=== PATIENT | male | born 1975 | race Hispanic/Latino ===

== ENCOUNTER 2021-08-17 17:09 | Emergency (ER) | payer SELFPAY ==
[2021-08-17 18:21] LABS: #Eosinphils 0.1 thou/uL (0.0-0.7); #Lymphocytes 1.5 thou/uL (1.20-3.40); #Monocytes 0.6 thou/uL (0.11-0.59); #Neutrophils 4.7 thou/uL (1.40-6.50); %Basophils 0.5 % (0.0-1.0); %Eosinophils 1.9 % (0.0-10.0); %Lymphocytes 21.3 % (21.0-51.0); %Monocytes 8.1 % (0.0-10.0); %Neutrophils 68.2 % (42.0-75.0); Hemoglobin 17.7 g/dL (14.0-18.0); Mean Corpuscular HGB CONC 35.1 g/dL (32.0-36.0); Platelet Count 323 thou/uL (130-400); RBC Distribution Width 11.6 % (11.5-14.5); Red Blood Cell (RBC) Count 5.19 mill/uL (4.70-6.10); White Blood Cell (WBC) Count 6.8 thou/uL (4.8-10.8)
[2021-08-17 18:37] LABS: ALT (SGPT) 26 U/L (8-55); AST (SGOT) 30 U/L (5-34); Albumin 4.6 g/dL (3.5-5.0); Alkaline Phosphatase 178 U/L (40-110); Anion Gap 15 mmol/L (10-20); BUN (Urea Nitrogen) 15 mg/dL (8.9-20.6); Bilirubin, Total 0.5 mg/dL (0.2-1.2); Calc. Creatinine Clearance 0 mL/min (70-130); Calcium 9.7 mg/dL (7.8-10.44); Carbon Dioxide 29 mmol/L (22-29); Chloride 94 mmol/L (98-107); Globulin 3.3 g/dL (2.4-3.5); Glucose 365 mg/dL (70-105); Potassium 3.8 mmol/L (3.5-5.1); Protein, Total 7.9 g/dL (6.0-8.3); Sodium 134 mmol/L (136-145)
[2021-08-17] MEDS ORDERED: Furosemide 20 MG/2 ML VIAL ONE (21:05)
[2021-08-17] MEDS ORDERED: Boostrix 0.5 ML (Tdap) VIAL ONE (21:14)
== END 2021-08-17 21:39 | disposition home or self-care (01) ==
LOC: ERS 17:09
DX: R60.0 Localized edema (principal); I10 Essential (primary) hypertension; E11.65 Type 2 diabetes mellitus with hyperglycemia; Z91.14 Patient's other noncompliance with medication regimen
CPT/HCPCS: 36415; 71046; 80053; 83880; 84484; 85025; 90715; 93005; 96374; J1940

== ENCOUNTER 2021-08-20 12:52 | Emergency (ER) | payer SELFPAY ==
[2021-08-20 14:12] LABS: #Basophils 0.1 thou/uL (0.0-0.2); #Eosinphils 0.2 thou/uL (0.0-0.7); #Lymphocytes 1.9 thou/uL (1.20-3.40); #Monocytes 0.6 thou/uL (0.11-0.59); #Neutrophils 5.5 thou/uL (1.40-6.50); %Basophils 0.7 % (0.0-1.0); %Eosinophils 2.7 % (0.0-10.0); %Lymphocytes 22.6 % (21.0-51.0); %Monocytes 7.5 % (0.0-10.0); %Neutrophils 66.5 % (42.0-75.0); Hemoglobin 15.2 g/dL (14.0-18.0); Mean Corpuscular HGB CONC 33.4 g/dL (32.0-36.0); Mean Corpuscular Hemoglobin 32.5 pg (27.0-31.0); Mean Corpuscular Volume 97.3 fL (78.0-98.0); Mean Platelet Volume 6.8 fL (7.4-10.4); Platelet Count 303 thou/uL (130-400); RBC Distribution Width 11.7 % (11.5-14.5); Red Blood Cell (RBC) Count 4.69 mill/uL (4.70-6.10); White Blood Cell (WBC) Count 8.3 thou/uL (4.8-10.8)
[2021-08-20 14:34] LABS: Anion Gap 11 mmol/L (10-20); BUN (Urea Nitrogen) 15 mg/dL (8.9-20.6); Calc. Creatinine Clearance 0 mL/min (70-130); Carbon Dioxide 34 mmol/L (22-29); Chloride 96 mmol/L (98-107); Potassium 3.8 mmol/L (3.5-5.1); Sodium 137 mmol/L (136-145)
[2021-08-20 14:35] LABS: ALT (SGPT) 17 U/L (8-55); AST (SGOT) 12 U/L (5-34); Acetaminophen Less than 6.0 mcg/mL (10.0-30.0); Albumin 3.8 g/dL (3.5-5.0); Alcohol Less than 10 mg/dL (Less than 10); Alkaline Phosphatase 105 U/L (40-110); Bilirubin, Total 0.5 mg/dL (0.2-1.2); Calcium 9.6 mg/dL (7.8-10.44); Globulin 2.6 g/dL (2.4-3.5); Glucose 234 mg/dL (70-105); Protein, Total 6.4 g/dL (6.0-8.3); Salicylate Less than 8.0 mg/dL (15.0-30.0)
[2021-08-20 16:54] LABS: SARS-CoV-2 NAA Rapid Test Not Detected (NotDetected)
[2021-08-20 17:27] LABS: Amphetamine Detected (NotDetected); Barbiturates Screen Not Detected (NotDetected); Benzodiazepine Screen Not Detected (NotDetected); Cocaine Metabolite Screen Not Detected (NotDetected); Methadone Not Detected (NotDetected); Methamphetamine Detected (NotDetected); Opiate Screen Not Detected (NotDetected); Oxycodone Screen Not Detected (NotDetected); Phencyclidine (PCP) Not Detected (NotDetected); THC/Cannabinoid Screen Not Detected (NotDetected); Tricyclic Screen Not Detected (NotDetected)
== END 2021-08-21 11:00 ==
LOC: ERS 12:52
DX: R45.851 Suicidal ideations (principal); F19.10 Other psychoactive substance abuse, uncomplicated; E11.9 Type 2 diabetes mellitus without complications; F17.210 Nicotine dependence, cigarettes, uncomplicated; I10 Essential (primary) hypertension; F32.A Depression, unspecified; F41.9 Anxiety disorder, unspecified; Z20.822 Contact with and (suspected) exposure to COVID-19; Z79.84 Long term (current) use of oral hypoglycemic drugs; Z79.4 Long term (current) use of insulin
CPT/HCPCS: 36415; 36416; 80053; 80306; 80307; 84443; 85025; 85652; 86140; 93005; U0002

== ENCOUNTER 2021-10-17 08:49 | Outpatient (CLI) | payer OTHER | END 2021-10-17 08:50 | disposition home or self-care (01) | LOC: BICRAD 08:49 | PROVIDERS: ATTEND Family Medicine | DX: L08.9 Local infection of the skin and subcutaneous tissue, unspecified (principal) ==

== ENCOUNTER 2022-03-26 03:27 | Emergency (ER) | payer SELFPAY ==
[2022-03-26 04:56] LABS: Actual Bicarbonate (HCO3v) 29 mEq/L (22-28); Analyzer IN Cardio ER; Base Excess 3.1 mEq/L (-2.0 to +3.0); Calcium, Ionized (venous) 1.13 mmol/L (1.16-1.32); Chloride (VBG) 96 mmol/L (98-106); Hemoglobin (Hb) 14.5 g/dL (13.1-17.2); Potassium (VBG) 3.91 mmol/L (3.70-5.30); pH (venous) 7.37 (7.32-7.43)
== END 2022-03-26 05:18 ==
LOC: ERS 03:27
DX: L89.629 Pressure ulcer of left heel, unspecified stage (principal); E11.621 Type 2 diabetes mellitus with foot ulcer; I10 Essential (primary) hypertension; F17.210 Nicotine dependence, cigarettes, uncomplicated; Z79.4 Long term (current) use of insulin
CPT/HCPCS: 36415; 82805; 99283

== ENCOUNTER 2022-05-11 02:46 | Observation (INO) | payer SELFPAY ==
[2022-05-11 03:50] LABS: Actual Bicarbonate (HCO3v) 26 mEq/L (22-28); Analyzer IN Cardio ER; Calcium, Ionized (venous) 1.08 mmol/L (1.16-1.32); Chloride (VBG) 98 mmol/L (98-106); Hemoglobin (Hb) 13.8 g/dL (13.1-17.2); Potassium (VBG) 4.01 mmol/L (3.70-5.30); Sodium 130.9 mmol/L (133-146); pH (venous) 7.42 (7.32-7.43)
[2022-05-11 03:55] LABS: #Basophils 0.1 thou/uL (0.0-0.2); #Eosinphils 0.2 thou/uL (0.0-0.7); #Lymphocytes 2.2 thou/uL (1.20-3.40); #Monocytes 0.6 thou/uL (0.11-0.59); #Neutrophils 3.6 thou/uL (1.40-6.50); %Eosinophils 3.4 % (0.0-10.0); %Lymphocytes 32.3 % (21.0-51.0); %Monocytes 8.8 % (0.0-10.0); %Neutrophils 54.6 % (42.0-75.0); Hemoglobin 12.7 g/dL (14.0-18.0); Mean Corpuscular HGB CONC 35.2 g/dL (32.0-36.0); Mean Corpuscular Hemoglobin 32.6 pg (27.0-31.0); Mean Corpuscular Volume 92.6 fl (78.0-98.0); Mean Platelet Volume 7.1 fL (7.4-10.4); Platelet Count 335 thou/uL (130-400); Red Blood Cell (RBC) Count 3.89 mill/uL (4.70-6.10); White Blood Cell (WBC) Count 6.7 thou/uL (4.8-10.8)
[2022-05-11 04:16] LABS: ALT (SGPT) 9 U/L (8-55); AST (SGOT) 14 U/L (5-34); Acetaminophen Less than 10.0 mcg/mL (10.0-30.0); Albumin 3.5 g/dL (3.5-5.0); Alcohol Less than 10 mg/dL (Less than 10); Alkaline Phosphatase 177 U/L (40-110); Anion Gap 10 mmol/L (10-20); BUN (Urea Nitrogen) 18 mg/dL (8.9-20.6); Bilirubin, Total 0.3 mg/dL (0.2-1.2); Calc. Creatinine Clearance 0 mL/min (70-130); Calcium 8.8 mg/dL (7.8-10.44); Carbon Dioxide 27 mmol/L (22-29); Chloride 98 mmol/L (98-107); Estimated GFR 85; Globulin 2.7 g/dL (2.4-3.5); Glucose 341 mg/dL (70-105); Lipase 40 U/L (8-78); Magnesium 1.8 mg/dL (1.6-2.6); Protein, Total 6.2 g/dL (6.0-8.3); Salicylate Less than 8.0 mg/dL (15.0-30.0); Sodium 131 mmol/L (136-145)
[2022-05-11 04:40] LABS: Bilirubin Negative (Negative); Blood, Urine Negative (Negative); Clarity Clear (Clear); Glucose, Urine (Dipstick) Greater than 1000 mg/dL (Negative); Ketone, Urine Negative (Negative); Leukocyte Negative Leu/uL (Negative); Nitrite Negative (Negative); Protein, Urine (Dipstick) Negative (Neg-Trace); Specific Gravity, Urine 1.034 (1.002-1.036); Urobilinogen Normal mg/dL (Less than 2)
[2022-05-11 04:41] LABS: Amphetamine Detected (NotDetected); Barbiturates Screen Not Detected (NotDetected); Benzodiazepine Screen Not Detected (NotDetected); Cocaine Metabolite Screen Not Detected (NotDetected); Methadone Not Detected (NotDetected); Methamphetamine Detected (NotDetected); Opiate Screen Not Detected (NotDetected); Oxycodone Screen Not Detected (NotDetected); Phencyclidine (PCP) Not Detected (NotDetected); THC/Cannabinoid Screen Detected (NotDetected); Tricyclic Screen Not Detected (NotDetected)
[2022-05-11] MEDS ORDERED: Ondansetron PF 4 MG/2 ML Vial ONE (05:59)
[2022-05-11] MEDS ORDERED: Dextrose 50% Abboject 50 ML SYRINGE SLOW IVP PRN (06:40)
[2022-05-11] MEDS ORDERED: HumaLOG 300 UNITS/3 ML VIAL SC PRN ×2 (06:40)
[2022-05-11] MEDS ORDERED: Dextrose 5% in Water 1,000 ML IV PRN (06:40)
[2022-05-11] MEDS ORDERED: [UNRECOGNIZED DRUG - OTHER] SQ SCH (09:00)
[2022-05-11] MEDS ORDERED: Lorazepam 1 MG TAB PO PRN (09:00)
[2022-05-11] MEDS ORDERED: Lorazepam 2 MG/ML VIAL IM PRN (09:00)
[2022-05-11] MEDS ORDERED: Folic Acid 1 MG TAB PO SCH (09:00)
[2022-05-11] MEDS ORDERED: INSULIN ASPART 100 UNIT/ML SQ SCH (09:00)
[2022-05-11] MEDS ORDERED: Ondansetron ODT 4 MG TAB PO PRN (09:00)
[2022-05-11] MEDS ORDERED: INSULN SQ SCH (09:00)
[2022-05-11] MEDS ORDERED: Multivit, Therapeutic 1 TAB PO SCH (09:00)
[2022-05-11] MEDS ORDERED: Electrolyte Replacement Protocol 1 EACH FS SCH (09:00)
[2022-05-11] MEDS ORDERED: Potassium Chloride 20 MEQ TAB PO SCH (09:30)
[2022-05-11 10:06] LABS: Magnesium 1.8 mg/dL (1.6-2.6)
[2022-05-11] MEDS ORDERED: HumaLOG 300 UNITS/3 ML VIAL SC SCH (15:00)
[2022-05-11 15:22] LABS: Syphilis Antibody Nonreactive (Nonreactive); Syphilis Antibody Index 0.08 S/CO (<1.00 Non-Reactive)
[2022-05-12] MEDS ORDERED: Thiamine HCl 200 MG/2 ML VIAL SLOW IVP SCH (09:00)
[2022-05-12] MEDS ORDERED: Lorazepam 1 MG TAB PO PRN (09:00)
[2022-05-13] MEDS ORDERED: Lorazepam 1 MG TAB PO PRN (09:00)
[2022-05-14] MEDS ORDERED: Thiamine 100 MG TAB PO SCH (09:00)
[2022-05-14] MEDS ORDERED: Lorazepam 0.5 MG TAB PO PRN (09:00)
== END 2022-05-11 10:47 | disposition left against medical advice (07) ==
LOC: ERS 02:46 → ERHOLD 06:26
PROVIDERS: ADMIT Student in an Organized Health Care Education/Training Program; ATTEND Student in an Organized Health Care Education/Training Program
DX: F15.129 Other stimulant abuse with intoxication, unspecified (principal); F12.129 Cannabis abuse with intoxication, unspecified; G92.8 Other toxic encephalopathy; T40.715A Adverse effect of cannabis, initial encounter; E11.9 Type 2 diabetes mellitus without complications; F17.210 Nicotine dependence, cigarettes, uncomplicated; Z53.29 Procedure and treatment not carried out because of patient's decision for other reasons; Z79.4 Long term (current) use of insulin; Z79.84 Long term (current) use of oral hypoglycemic drugs; Z79.899 Other long term (current) drug therapy; Z89.422 Acquired absence of other left toe(s)
CPT/HCPCS: 36415; 36416; 70450; 80053; 80306; 80307; 81003; 82805; 83690; 83735; 85025; 86780; 93005; 96375; G0378; J2405; J3411

== ENCOUNTER 2022-08-31 20:42 | Inpatient (IN) | payer OTHER, SELFPAY ==
[2022-08-31] MEDS ORDERED: Morphine 4 MG/ML VIAL ONE ×2 (20:59→22:03)
[2022-08-31] MEDS ORDERED: Ondansetron PF 4 MG/2 ML Vial ONE (20:59)
[2022-08-31 21:03] LABS: #Eosinphils 0.1 thou/uL (0.0-0.7); #Monocytes 0.8 thou/uL (0.11-0.59); #Neutrophils 8.6 thou/uL (1.40-6.50); %Basophils 0.4 % (0.0-1.0); %Eosinophils 0.7 % (0.0-10.0); %Lymphocytes 9.5 % (21.0-51.0); %Monocytes 7.5 % (0.0-10.0); Hemoglobin 14.5 g/dL (14.0-18.0); Mean Corpuscular HGB CONC 34.3 g/dL (32.0-36.0); Mean Corpuscular Hemoglobin 31.2 pg (27.0-31.0); Mean Corpuscular Volume 90.8 fl (78.0-98.0); Mean Platelet Volume 6.7 fL (7.4-10.4); Platelet Count 422 10x3/uL (130-400); RBC Distribution Width 11.9 % (11.5-14.5); Red Blood Cell (RBC) Count 4.67 mill/uL (4.70-6.10); White Blood Cell (WBC) Count 10.5 10x3/uL (4.8-10.8)
[2022-08-31] MEDS ORDERED: Vancomycin 1 GM/200 ML (FROZEN) BAG ONE (21:08)
[2022-08-31 21:19] LABS: Actual Bicarbonate (HCO3v) 27 mEq/L (22-28); Base Excess 4.7 mEq/L (-2.0 to +3.0); Calcium, Ionized (venous) 1.08 mmol/L (1.16-1.32); Chloride (VBG) 91 mmol/L (98-106); Hemoglobin (Hb) 13.7 g/dL (13.1-17.2); Potassium (VBG) 4.39 mmol/L (3.70-5.30); Sodium 126.5 mmol/L (133-146); pH (venous) 7.53 (7.32-7.43)
[2022-08-31 21:24] LABS: ALT (SGPT) 14 U/L (8-55); AST (SGOT) 13 U/L (5-34); Albumin 3.8 g/dL (3.5-5.0); Alkaline Phosphatase 191 U/L (40-110); Anion Gap 14 mmol/L (10-20); BUN (Urea Nitrogen) 12 mg/dL (8.9-20.6); Bilirubin, Total 0.4 mg/dL (0.2-1.2); Calc. Creatinine Clearance 0 mL/min (70-130); Calcium 9.5 mg/dL (7.8-10.44); Carbon Dioxide 27 mmol/L (22-29); Chloride 91 mmol/L (98-107); Estimated GFR 71; Globulin 3.4 g/dL (2.4-3.5); Potassium 4.1 mmol/L (3.5-5.1); Protein, Total 7.2 g/dL (6.0-8.3); Sodium 128 mmol/L (136-145)
[2022-08-31 21:28] LABS: Glucose 518 mg/dL (70-105)
[2022-08-31] MEDS ORDERED: Ondansetron PF 4 MG/2 ML Vial IVP PRN (22:01)
[2022-08-31] MEDS ORDERED: Insulin Regular 300 UNITS/3 ML VIAL ONE (22:03)
[2022-08-31] MEDS ORDERED: Piperacillin/Tazobactam 3.375 GM VIAL ONE (22:03)
[2022-08-31] MEDS ORDERED: Dextrose 50% Abboject 50 ML SYRINGE SLOW IVP PRN (22:08)
[2022-08-31] MEDS ORDERED: Dextrose 5% in Water 1,000 ML IV PRN (22:08)
[2022-08-31] MEDS ORDERED: Insulin Glargine 30 UNITS/0.3 ML VIAL SC SCH (22:30)
[2022-08-31 22:53] LABS: Hemoglobin A1c 12.3 % (4.0-6.0)
[2022-08-31 23:26] VITALS: BMI 22.6
[2022-09-01] MEDS: Cefepime 2 GM in Sodium Chloride 0.9% 100 ML IVPB SCH ×2 (00:08→12:54)
[2022-09-01] MEDS: Sodium Chloride 0.9% 1,000 ML IV SCH ×4 (00:09→22:05)
[2022-09-01 00:35] LABS: Lactic Acid 0.8 mmol/L (0.5-2.2)
[2022-09-01] MEDS ORDERED: HYDROmorphone 0.5 MG/0.5 ML SYRINGE SLOW IVP SCH (01:00)
[2022-09-01] MEDS ORDERED: Vancomycin HCl 500 MG in Sodium Chloride 0.9% 100 ML IVPB SCH (01:00)
[2022-09-01 05:47] LABS: #Eosinphils 0.2 thou/uL (0.0-0.7); #Lymphocytes 1.4 thou/uL (1.20-3.40); #Neutrophils 8.2 thou/uL (1.40-6.50); %Basophils 0.3 % (0.0-1.0); %Eosinophils 1.7 % (0.0-10.0); %Lymphocytes 12.6 % (21.0-51.0); %Neutrophils 76.3 % (42.0-75.0); Hemoglobin 11.8 g/dL (14.0-18.0); Mean Corpuscular HGB CONC 33.9 g/dL (32.0-36.0); Mean Corpuscular Hemoglobin 31.1 pg (27.0-31.0); Mean Corpuscular Volume 91.8 fl (78.0-98.0); Mean Platelet Volume 6.4 fL (7.4-10.4); Platelet Count 344 10x3/uL (130-400); RBC Distribution Width 11.9 % (11.5-14.5); Red Blood Cell (RBC) Count 3.79 mill/uL (4.70-6.10); White Blood Cell (WBC) Count 10.7 10x3/uL (4.8-10.8)
[2022-09-01 06:06] LABS: Anion Gap 12 mmol/L (10-20); BUN (Urea Nitrogen) 10 mg/dL (8.9-20.6); Calc. Creatinine Clearance 152 mL/min (70-130); Calcium 8.5 mg/dL (7.8-10.44); Carbon Dioxide 23 mmol/L (22-29); Chloride 100 mmol/L (98-107); Estimated GFR 118; Glucose 208 mg/dL (70-105); Potassium 3.7 mmol/L (3.5-5.1); Sodium 131 mmol/L (136-145)
[2022-09-01] MEDS: Insulin Regular 300 UNITS/3 ML VIAL SC PRN ×4 (06:25→21:58)
[2022-09-01] MEDS ORDERED: Magnevist 469MG/ML 20 ML VIAL ONE (09:03)
[2022-09-01] MEDS: Famotidine 20 MG TAB PO SCH ×2 (09:38→21:55)
[2022-09-01] MEDS: VANCOMYCIN 1.25 GM/250 ML BAG 1.25 GM in Premix Bag 1 BAG IVPB SCH ×2 (09:39→21:50)
[2022-09-01] MEDS: metroNIDAZOLE 500 MG TAB PO SCH ×2 (16:24→21:56)
[2022-09-01] MEDS: HYDROcodone/Acetaminophen 5/325 mg Tablet PO PRN ×2 (16:57→21:54)
[2022-09-01] MEDS ORDERED: Insulin Glargine 30 UNITS/0.3 ML VIAL SC SCH (21:00)
[2022-09-02] MEDS: Cefepime 2 GM in Sodium Chloride 0.9% 100 ML IVPB SCH ×3 (00:24→23:46)
[2022-09-02] MEDS: Insulin Regular 300 UNITS/3 ML VIAL SC PRN ×4 (06:26→20:12)
[2022-09-02] MEDS: Sodium Chloride 0.9% 1,000 ML IV SCH (06:29)
[2022-09-02 08:38] LABS: Vancomycin, Trough 5.8 ug/mL
[2022-09-02] MEDS: HYDROcodone/Acetaminophen 5/325 mg Tablet PO PRN ×3 (11:04→21:13)
[2022-09-02] MEDS: Famotidine 20 MG TAB PO SCH ×2 (11:40→20:10)
[2022-09-02] MEDS: VANCOMYCIN 1.25 GM/250 ML BAG 1.25 GM in Premix Bag 1 BAG IVPB SCH ×3 (11:40→18:44)
[2022-09-02] MEDS: metroNIDAZOLE 500 MG TAB PO SCH ×3 (11:40→20:09)
[2022-09-02] MEDS: Insulin Glargine 30 UNITS/0.3 ML VIAL SC SCH (20:11)
[2022-09-03] MEDS: VANCOMYCIN 1.25 GM/250 ML BAG 1.25 GM in Premix Bag 1 BAG IVPB SCH ×2 (02:26→14:58)
[2022-09-03 05:25] LABS: #Eosinphils 0.3 thou/uL (0.0-0.7); #Lymphocytes 1.9 thou/uL (1.20-3.40); #Monocytes 0.6 thou/uL (0.11-0.59); #Neutrophils 4.1 thou/uL (1.40-6.50); %Basophils 0.4 % (0.0-1.0); %Eosinophils 4.3 % (0.0-10.0); %Lymphocytes 26.7 % (21.0-51.0); %Monocytes 9.2 % (0.0-10.0); %Neutrophils 59.4 % (42.0-75.0); Hemoglobin 12.4 g/dL (14.0-18.0); Mean Corpuscular HGB CONC 33.5 g/dL (32.0-36.0); Mean Corpuscular Volume 92.5 fl (78.0-98.0); Mean Platelet Volume 6.3 fL (7.4-10.4); Platelet Count 428 10x3/uL (130-400); RBC Distribution Width 11.4 % (11.5-14.5); Red Blood Cell (RBC) Count 4.01 mill/uL (4.70-6.10); White Blood Cell (WBC) Count 6.9 10x3/uL (4.8-10.8)
[2022-09-03 05:48] LABS: Anion Gap 11 mmol/L (10-20); BUN (Urea Nitrogen) 11 mg/dL (8.9-20.6); Calc. Creatinine Clearance 123 mL/min (70-130); Calcium 8.7 mg/dL (7.8-10.44); Carbon Dioxide 28 mmol/L (22-29); Chloride 97 mmol/L (98-107); Estimated GFR 111; Glucose 362 mg/dL (70-105); Potassium 3.9 mmol/L (3.5-5.1); Sodium 132 mmol/L (136-145)
[2022-09-03] MEDS: Insulin Regular 300 UNITS/3 ML VIAL SC PRN ×3 (06:26→21:57)
[2022-09-03] MEDS: HYDROcodone/Acetaminophen 5/325 mg Tablet PO PRN ×2 (06:33→14:41)
[2022-09-03] MEDS: Insulin Glargine 30 UNITS/0.3 ML VIAL SC SCH ×2 (08:27→21:56)
[2022-09-03] MEDS: metroNIDAZOLE 500 MG TAB PO SCH ×3 (08:27→21:58)
[2022-09-03] MEDS: Famotidine 20 MG TAB PO SCH ×2 (08:27→21:57)
[2022-09-03 09:22] LABS: Vancomycin, Trough 10.9 ug/mL
[2022-09-03] MEDS: Vancomycin 1.5 GRAM/300 ML BAG 1.5 GM in Premix Bag 1 BAG IVPB SCH ×2 (10:38→18:13)
[2022-09-03] MEDS: Cefepime 2 GM in Sodium Chloride 0.9% 100 ML IVPB SCH (12:52)
[2022-09-04] MEDS: Cefepime 2 GM in Sodium Chloride 0.9% 100 ML IVPB SCH ×2 (00:08→13:45)
[2022-09-04] MEDS: Vancomycin 1.5 GRAM/300 ML BAG 1.5 GM in Premix Bag 1 BAG IVPB SCH ×2 (02:15→13:45)
[2022-09-04 05:52] LABS: #Eosinphils 0.3 thou/uL (0.0-0.7); #Lymphocytes 1.8 thou/uL (1.20-3.40); #Monocytes 0.6 thou/uL (0.11-0.59); #Neutrophils 4.6 thou/uL (1.40-6.50); %Basophils 0.5 % (0.0-1.0); %Eosinophils 4.3 % (0.0-10.0); %Lymphocytes 24.4 % (21.0-51.0); %Monocytes 8.2 % (0.0-10.0); %Neutrophils 62.7 % (42.0-75.0); Hemoglobin 13.1 g/dL (14.0-18.0); Mean Corpuscular HGB CONC 33.4 g/dL (32.0-36.0); Mean Corpuscular Hemoglobin 30.6 pg (27.0-31.0); Mean Corpuscular Volume 91.6 fl (78.0-98.0); Mean Platelet Volume 6.3 fL (7.4-10.4); Platelet Count 484 10x3/uL (130-400); RBC Distribution Width 11.5 % (11.5-14.5); Red Blood Cell (RBC) Count 4.27 mill/uL (4.70-6.10); White Blood Cell (WBC) Count 7.3 10x3/uL (4.8-10.8)
[2022-09-04] MEDS: Insulin Regular 300 UNITS/3 ML VIAL SC PRN ×3 (06:16→17:03)
[2022-09-04 06:17] LABS: Anion Gap 12 mmol/L (10-20); BUN (Urea Nitrogen) 10 mg/dL (8.9-20.6); Calc. Creatinine Clearance 130 mL/min (70-130); Calcium 8.9 mg/dL (7.8-10.44); Carbon Dioxide 28 mmol/L (22-29); Chloride 96 mmol/L (98-107); Estimated GFR 112; Glucose 267 mg/dL (70-105); Potassium 4.3 mmol/L (3.5-5.1); Sodium 132 mmol/L (136-145)
[2022-09-04] MEDS: metFORMIN 500 MG TAB PO SCH ×2 (08:25→16:05)
[2022-09-04] MEDS: Insulin Glargine 30 UNITS/0.3 ML VIAL SC SCH ×2 (08:26→23:00)
[2022-09-04] MEDS: Famotidine 20 MG TAB PO SCH ×2 (08:26→20:02)
[2022-09-04] MEDS: metroNIDAZOLE 500 MG TAB PO SCH ×3 (08:26→20:02)
[2022-09-04] MEDS: HYDROcodone/Acetaminophen 5/325 mg Tablet PO PRN ×2 (12:07→16:05)
[2022-09-04] MEDS: VANCOMYCIN 1.75 GM/500 ML BAG 1.75 GM in Premix Bag 1 BAG IVPB SCH ×2 (12:26→19:56)
[2022-09-05] MEDS: VANCOMYCIN 1.75 GM/500 ML BAG 1.75 GM in Premix Bag 1 BAG IVPB SCH ×3 (04:41→21:24)
[2022-09-05] MEDS: Insulin Regular 300 UNITS/3 ML VIAL SC PRN ×4 (05:47→21:23)
[2022-09-05 05:55] LABS: #Eosinphils 0.3 thou/uL (0.0-0.7); #Lymphocytes 2.1 thou/uL (1.20-3.40); #Monocytes 0.5 thou/uL (0.11-0.59); #Neutrophils 4.1 thou/uL (1.40-6.50); %Basophils 0.5 % (0.0-1.0); %Eosinophils 4.3 % (0.0-10.0); %Lymphocytes 29.9 % (21.0-51.0); %Monocytes 7.5 % (0.0-10.0); %Neutrophils 57.9 % (42.0-75.0); Hemoglobin 14.2 g/dL (14.0-18.0); Mean Corpuscular HGB CONC 33.6 g/dL (32.0-36.0); Mean Corpuscular Hemoglobin 30.9 pg (27.0-31.0); Mean Corpuscular Volume 91.9 fl (78.0-98.0); Mean Platelet Volume 6.2 fL (7.4-10.4); Platelet Count 513 10x3/uL (130-400); RBC Distribution Width 11.7 % (11.5-14.5); White Blood Cell (WBC) Count 7.1 10x3/uL (4.8-10.8)
[2022-09-05 06:15] LABS: Anion Gap 13 mmol/L (10-20); BUN (Urea Nitrogen) 14 mg/dL (8.9-20.6); Calc. Creatinine Clearance 145 mL/min (70-130); Calcium 8.9 mg/dL (7.8-10.44); Carbon Dioxide 26 mmol/L (22-29); Chloride 98 mmol/L (98-107); Estimated GFR 116; Glucose 270 mg/dL (70-105); Potassium 4.3 mmol/L (3.5-5.1); Sodium 133 mmol/L (136-145)
[2022-09-05] MEDS: metroNIDAZOLE 500 MG TAB PO SCH ×2 (09:00→14:44)
[2022-09-05] MEDS: metFORMIN 500 MG TAB PO SCH ×2 (09:00→16:31)
[2022-09-05] MEDS: Famotidine 20 MG TAB PO SCH ×2 (09:00→21:24)
[2022-09-05] MEDS: Insulin Glargine 30 UNITS/0.3 ML VIAL SC SCH ×2 (09:00→21:23)
[2022-09-05 11:35] LABS: Vancomycin, Trough 20.3 ug/mL
[2022-09-05] MEDS: HYDROcodone/Acetaminophen 5/325 mg Tablet PO PRN (13:40)
[2022-09-05] MEDS ORDERED: HYDROcodone/Acetaminophen 5/325 mg Tablet PO PRN (15:23)
[2022-09-06 01:09] VITALS: BP 144/82; TEMP 97.5
[2022-09-06] MEDS: VANCOMYCIN 1.75 GM/500 ML BAG 1.75 GM in Premix Bag 1 BAG IVPB SCH ×2 (03:36→05:37)
== END 2022-09-06 05:32 | disposition short-term general hospital (02) | DRG 871 ==
LOC: ERS 20:42 → OBSVTOIN 21:59 → MSONC 21:59
PROVIDERS: ADMIT Hospitalist; ATTEND Internal Medicine
DX: A41.9 Sepsis, unspecified organism (principal); L89.153 Pressure ulcer of sacral region, stage 3; E87.1 Hypo-osmolality and hyponatremia; M86.172 Other acute osteomyelitis, left ankle and foot; E11.69 Type 2 diabetes mellitus with other specified complication; Z20.822 Contact with and (suspected) exposure to COVID-19; E11.65 Type 2 diabetes mellitus with hyperglycemia; I10 Essential (primary) hypertension; E11.621 Type 2 diabetes mellitus with foot ulcer; L97.529 Non-pressure chronic ulcer of other part of left foot with unspecified severity; Z79.4 Long term (current) use of insulin; Z79.899 Other long term (current) drug therapy; F41.9 Anxiety disorder, unspecified; F32.A Depression, unspecified; F15.10 Other stimulant abuse, uncomplicated; F17.210 Nicotine dependence, cigarettes, uncomplicated; E11.42 Type 2 diabetes mellitus with diabetic polyneuropathy; Z89.431 Acquired absence of right foot; Z59.00 Homelessness unspecified
CPT/HCPCS: 36415; 36416; 80048; 80053; 80202; 82010; 82805; 83036; 83605; 85025; 85652; 86140; 87040; 87070; 87077; 87186; 87205; 93005; 96365; 96366; 96375; 96376; 97139; A9579; J0692; J1170; J1650; J1815; J2270; J2405; J2543; J3370; J3370-JW; J3490; J7050; U0003; U0005

== ENCOUNTER 2023-03-08 12:41 | Emergency (ER) | payer OTHER ==
[2023-03-08 13:18] LABS: #Basophils 0.1 thou/uL (0.0-0.2); #Eosinphils 0.2 thou/uL (0.0-0.7); #Monocytes 0.8 thou/uL (0.11-0.59); #Neutrophils 5.1 thou/uL (1.40-6.50); %Basophils 0.6 % (0.0-1.0); %Eosinophils 2.7 % (0.0-10.0); %Lymphocytes 23.4 % (21.0-51.0); %Monocytes 9.9 % (0.0-10.0); %Neutrophils 63.2 % (42.0-75.0); Hematocrit 39.2 % (42.0-52.0); Mean Corpuscular HGB CONC 35.7 g/dL (32.0-36.0); Mean Corpuscular Hemoglobin 31.5 pg (27.0-31.0); Mean Corpuscular Volume 88.1 fl (78.0-98.0); Mean Platelet Volume 8.9 fL (7.4-10.4); Platelet Count 363 10x3/uL (130-400); RBC Distribution Width 11.8 % (11.5-14.5); Red Blood Cell (RBC) Count 4.45 mill/uL (4.70-6.10); White Blood Cell (WBC) Count 8.2 10x3/uL (4.8-10.8)
[2023-03-08 13:27] LABS: Actual Bicarbonate (HCO3v) 24.3 mEq/L (22-28); Base Excess -0.3 mEq/L (-2.0 to +3.0); Calcium, Ionized (venous) 1.12 mmol/L (1.16-1.32); Chloride (VBG) 99 mmol/L (98-106); Hematocrit-VBG 44 % (42.0-52.0); Hemoglobin (Hb) 14.9 g/dL (13.1-17.2); Potassium (VBG) 3.87 mmol/L (3.70-5.30); pH (venous) 7.402 (7.32-7.43)
[2023-03-08 13:39] LABS: Phosphorus 3.1 mg/dL (2.3-4.7)
[2023-03-08 13:47] LABS: ALT (SGPT) 14 U/L (8-55); AST (SGOT) 13 U/L (5-34); Albumin 4.1 g/dL (3.5-5.0); Alkaline Phosphatase 214 U/L (40-110); Anion Gap 14 mmol/L (10-20); BUN (Urea Nitrogen) 12 mg/dL (8.9-20.6); Bilirubin, Total 0.4 mg/dL (0.2-1.2); Calc. Creatinine Clearance 0 mL/min (70-130); Calcium 9.4 mg/dL (7.8-10.44); Carbon Dioxide 26 mmol/L (22-29); Chloride 100 mmol/L (98-107); Estimated GFR 63; Globulin 2.7 g/dL (2.4-3.5); Protein, Total 6.8 g/dL (6.0-8.3); Sodium 136 mmol/L (136-145)
[2023-03-08 13:54] LABS: Glucose 438 mg/dL (70-105)
[2023-03-08] MEDS ORDERED: cefTRIAXone (ROCEPHIN) 2 GM VIAL ONE (14:07)
== END 2023-03-08 15:49 ==
LOC: ERS 12:41
DX: E11.65 Type 2 diabetes mellitus with hyperglycemia (principal); E11.621 Type 2 diabetes mellitus with foot ulcer; L97.519 Non-pressure chronic ulcer of other part of right foot with unspecified severity; L97.529 Non-pressure chronic ulcer of other part of left foot with unspecified severity; I10 Essential (primary) hypertension; F17.210 Nicotine dependence, cigarettes, uncomplicated
CPT/HCPCS: 36415; 80053; 82010; 82805; 83735; 84100; 85025; 87040; 96361; 96365; J0696

== ENCOUNTER 2023-03-18 05:15 | Emergency (ER) | payer OTHER, MEDICAID ==
[2023-03-18] MEDS ORDERED: Vancomycin 1.5 GRAM/300 ML BAG 1.5 GM in Premix Bag 1 BAG IVPB SCH (05:45)
[2023-03-18] MEDS ORDERED: Morphine 4 MG/ML VIAL ONE (05:50)
[2023-03-18] MEDS ORDERED: Cefepime 2 GM VIAL ONE (05:50)
[2023-03-18 06:34] LABS: CK (CPK) 102 U/L (30-200); Phosphorus 3.3 mg/dL (2.3-4.7)
[2023-03-18 06:35] LABS: ALT (SGPT) 16 U/L (8-55); AST (SGOT) 13 U/L (5-34); Albumin 4.2 g/dL (3.5-5.0); Alkaline Phosphatase 233 U/L (40-110); Anion Gap 14 mmol/L (10-20); BUN (Urea Nitrogen) 17 mg/dL (8.9-20.6); Bilirubin, Total 0.5 mg/dL (0.2-1.2); Calc. Creatinine Clearance 0 mL/min (70-130); Calcium 9.3 mg/dL (7.8-10.44); Carbon Dioxide 29 mmol/L (22-29); Chloride 97 mmol/L (98-107); Estimated GFR 82; Globulin 2.8 g/dL (2.4-3.5); Magnesium 1.8 mg/dL (1.6-2.6); Potassium 4.2 mmol/L (3.5-5.1); Sodium 136 mmol/L (136-145)
[2023-03-18 06:40] LABS: Glucose 409 mg/dL (70-105); Troponin I Less than 0.010 ng/mL (< 0.028)
[2023-03-18 06:45] LABS: #Basophils 0.1 thou/uL (0.0-0.2); #Eosinphils 0.1 thou/uL (0.0-0.7); #Monocytes 0.9 thou/uL (0.11-0.59); #Neutrophils 7.5 thou/uL (1.40-6.50); %Basophils 0.5 % (0.0-1.0); %Eosinophils 1.3 % (0.0-10.0); %Lymphocytes 20.9 % (21.0-51.0); %Monocytes 8.6 % (0.0-10.0); %Neutrophils 68.3 % (42.0-75.0); Hematocrit 43.9 % (42.0-52.0); Hemoglobin 15.5 g/dL (14.0-18.0); Mean Corpuscular HGB CONC 35.3 g/dL (32.0-36.0); Mean Corpuscular Hemoglobin 31.7 pg (27.0-31.0); Mean Corpuscular Volume 89.8 fl (78.0-98.0); Mean Platelet Volume 9.3 fL (7.4-10.4); Platelet Count 377 10x3/uL (130-400); RBC Distribution Width 12.2 % (11.5-14.5); Red Blood Cell (RBC) Count 4.89 mill/uL (4.70-6.10)
[2023-03-18 06:46] LABS: Actual Bicarbonate (HCO3v) 28.2 mEq/L (22-28); Base Excess 0.3 mEq/L (-2.0 to +3.0); Calcium, Ionized (venous) 1.14 mmol/L (1.16-1.32); Chloride (VBG) 95 mmol/L (98-106); Hematocrit-VBG 49 % (42.0-52.0); Hemoglobin (Hb) 16.6 g/dL (13.1-17.2); Potassium (VBG) 3.87 mmol/L (3.70-5.30); Sodium 134.8 mmol/L (133-146); pH (venous) 7.303 (7.32-7.43)
== END 2023-03-18 07:25 | disposition left against medical advice (07) ==
LOC: ERS 05:15
DX: A41.9 Sepsis, unspecified organism (principal); M86.9 Osteomyelitis, unspecified; F15.10 Other stimulant abuse, uncomplicated; E11.9 Type 2 diabetes mellitus without complications; I10 Essential (primary) hypertension; F17.210 Nicotine dependence, cigarettes, uncomplicated; Z79.4 Long term (current) use of insulin; Z79.84 Long term (current) use of oral hypoglycemic drugs
CPT/HCPCS: 36415; 80053; 82010; 82550; 82805; 83605; 83735; 84100; 84484; 85025; 86140; 87040; 96365; 96375; J0692; J2270; J3370

== ENCOUNTER 2023-04-02 13:22 | Inpatient (IN) | payer MEDICAID, OTHER ==
[2023-04-02 14:30] LABS: #Eosinphils 0.3 thou/uL (0.0-0.7); #Monocytes 0.6 thou/uL (0.11-0.59); #Neutrophils 3.6 thou/uL (1.40-6.50); %Basophils 0.6 % (0.0-1.0); %Eosinophils 4.2 % (0.0-10.0); %Lymphocytes 30.2 % (21.0-51.0); %Monocytes 8.8 % (0.0-10.0); %Neutrophils 55.9 % (42.0-75.0); Hematocrit 39.8 % (42.0-52.0); Hemoglobin 14.1 g/dL (14.0-18.0); Mean Corpuscular HGB CONC 35.4 g/dL (32.0-36.0); Mean Corpuscular Hemoglobin 31.5 pg (27.0-31.0); Mean Corpuscular Volume 88.8 fl (78.0-98.0); Mean Platelet Volume 9.3 fL (7.4-10.4); Platelet Count 358 10x3/uL (130-400); RBC Distribution Width 12.2 % (11.5-14.5); Red Blood Cell (RBC) Count 4.48 mill/uL (4.70-6.10); White Blood Cell (WBC) Count 6.5 10x3/uL (4.8-10.8)
[2023-04-02] MEDS ORDERED: Cefepime 2 GM VIAL ONE (14:46)
[2023-04-02] MEDS ORDERED: Ondansetron PF 4 MG/2 ML Vial ONE (14:46)
[2023-04-02] MEDS ORDERED: Morphine 4 MG/ML VIAL ONE ×2 (14:46→17:16)
[2023-04-02 14:51] LABS: ALT (SGPT) 17 U/L (8-55); AST (SGOT) 13 U/L (5-34); Albumin 4.1 g/dL (3.5-5.0); Alkaline Phosphatase 239 U/L (40-110); Anion Gap 14 mmol/L (10-20); BUN (Urea Nitrogen) 20 mg/dL (8.9-20.6); Bilirubin, Total 0.2 mg/dL (0.2-1.2); Calc. Creatinine Clearance 0 mL/min (70-130); Calcium 9.5 mg/dL (7.8-10.44); Carbon Dioxide 23 mmol/L (22-29); Chloride 100 mmol/L (98-107); Estimated GFR 75; Globulin 3.1 g/dL (2.4-3.5); Potassium 3.8 mmol/L (3.5-5.1); Protein, Total 7.2 g/dL (6.0-8.3); Sodium 133 mmol/L (136-145)
[2023-04-02 14:56] LABS: Glucose 434 mg/dL (70-105)
[2023-04-02] MEDS ORDERED: Vancomycin 1.5 GRAM/300 ML BAG 1.5 GM in Premix Bag 1 BAG IVPB SCH (15:00)
[2023-04-02] MEDS ORDERED: Glucagon 1 MG/ML KIT IM PRN (17:19)
[2023-04-02] MEDS ORDERED: Dextrose 50% Abboject 50 ML SYRINGE SLOW IVP PRN (17:19)
[2023-04-02] MEDS ORDERED: Ondansetron ODT 4 MG TAB PO PRN (17:19)
[2023-04-02] MEDS ORDERED: Dextrose 5% in Water 1,000 ML IV PRN (17:19)
[2023-04-02] MEDS ORDERED: Ondansetron PF 4 MG/2 ML Vial IVP PRN (17:19)
[2023-04-02 17:44] LABS: Hemoglobin A1c 10.7 % (4.0-6.0)
[2023-04-02] MEDS ORDERED: Sodium Chloride 0.9% 1,000 ML IV SCH ×2 (18:00→21:00)
[2023-04-02] MEDS ORDERED: HumaLOG 300 UNITS/3 ML VIAL SC SCH (19:00)
[2023-04-02] MEDS ORDERED: Morphine ER 15 MG TAB PO SCH (19:00)
[2023-04-02 19:39] VITALS: BMI 20.9
[2023-04-02] MEDS: Morphine 2 MG/ML VIAL SLOW IVP PRN (20:09)
[2023-04-02] MEDS: HYDROcodone/Acetaminophen 5/325 mg Tablet PO PRN (20:10)
[2023-04-02] MEDS ORDERED: Naloxone HCl 0.4 mg/ml Vial IV PRN (20:32)
[2023-04-02] MEDS ORDERED: Acetaminophen 500 MG TAB PO PRN (20:32)
[2023-04-02] MEDS ORDERED: traMADol HCl 50 MG TAB PO PRN (20:32)
[2023-04-02] MEDS: Famotidine 20 MG TAB PO SCH (20:37)
[2023-04-02] MEDS ORDERED: Bisacodyl 5 MG TAB PO PRN (20:39)
[2023-04-02] MEDS: Heparin 5,000 UNITS/ML VIAL SC SCH (21:00)
[2023-04-02] MEDS ORDERED: Vancomycin 1 GM in Premix Bag 1 BAG IVPB SCH (21:00)
[2023-04-02] MEDS ORDERED: fentaNYL 50 mcg/mL 1 mL Vial SLOW IVP PRN (21:27)
[2023-04-02] MEDS: Morphine ER 15 MG TAB PO SCH (22:17)
[2023-04-03] MEDS: Morphine 2 MG/ML VIAL SLOW IVP PRN ×2 (02:52→12:10)
[2023-04-03] MEDS: HYDROcodone/Acetaminophen 5/325 mg Tablet PO PRN (02:53)
[2023-04-03] MEDS: Vancomycin 1 GM in Premix Bag 1 BAG IVPB SCH ×2 (02:53→15:15)
[2023-04-03] MEDS: Cefepime 2 GM in Sodium Chloride 0.9% 100 ML IVPB SCH ×2 (04:03→14:41)
[2023-04-03] MEDS: HumaLOG 300 UNITS/3 ML VIAL SC PRN ×3 (05:16→21:40)
[2023-04-03 05:39] LABS: #Eosinphils 0.2 thou/uL (0.0-0.7); #Monocytes 0.5 thou/uL (0.11-0.59); #Neutrophils 2.7 thou/uL (1.40-6.50); %Basophils 0.5 % (0.0-1.0); Hematocrit 37.1 % (42.0-52.0); Hemoglobin 13.1 g/dL (14.0-18.0); Mean Corpuscular HGB CONC 35.3 g/dL (32.0-36.0); Mean Corpuscular Hemoglobin 31.9 pg (27.0-31.0); Mean Corpuscular Volume 90.3 fl (78.0-98.0); Mean Platelet Volume 9.3 fL (7.4-10.4); Platelet Count 296 10x3/uL (130-400); RBC Distribution Width 12.3 % (11.5-14.5); Red Blood Cell (RBC) Count 4.11 mill/uL (4.70-6.10); White Blood Cell (WBC) Count 5.7 10x3/uL (4.8-10.8)
[2023-04-03 07:02] LABS: Chloride 105 mmol/L (98-107); Sodium 132 mmol/L (136-145)
[2023-04-03 07:03] LABS: Calcium 8.4 mg/dL (7.8-10.44); Glucose 306 mg/dL (70-105)
[2023-04-03 07:05] LABS: Anion Gap 10 mmol/L (10-20); Carbon Dioxide 21 mmol/L (22-29)
[2023-04-03 07:07] LABS: Calc. Creatinine Clearance 118 mL/min (70-130); Estimated GFR 111
[2023-04-03 07:08] LABS: BUN (Urea Nitrogen) 16 mg/dL (8.9-20.6)
[2023-04-03 07:57] LABS: Amphetamine Detected (NotDetected); Barbiturates Screen Not Detected (NotDetected); Benzodiazepine Screen Not Detected (NotDetected); Cocaine Metabolite Screen Not Detected (NotDetected); Methadone Not Detected (NotDetected); Methamphetamine Detected (NotDetected); Opiate Screen Detected (NotDetected); Oxycodone Screen Not Detected (NotDetected); Phencyclidine (PCP) Not Detected (NotDetected); THC/Cannabinoid Screen Not Detected (NotDetected); Tricyclic Screen Not Detected (NotDetected)
[2023-04-03] MEDS: Famotidine 20 MG TAB PO SCH ×3 (08:55→22:25)
[2023-04-03] MEDS: Morphine ER 15 MG TAB PO SCH ×2 (08:56→22:12)
[2023-04-03] MEDS: Thiamine 100 MG TAB PO SCH (08:56)
[2023-04-03] MEDS: Polyethylene Glycol 3350 17 GM Packet PO SCH (08:57)
[2023-04-03] MEDS: Heparin 5,000 UNITS/ML VIAL SC SCH ×2 (08:57→21:41)
[2023-04-03] MEDS: Insulin Glargine 30 UNITS/0.3 ML VIAL SC SCH (21:39)
[2023-04-04 02:50] LABS: Vancomycin, Trough 5.8 ug/mL
[2023-04-04] MEDS: Cefepime 2 GM in Sodium Chloride 0.9% 100 ML IVPB SCH ×2 (03:01→15:44)
[2023-04-04] MEDS: VANCOMYCIN 1.25 GM/250 ML BAG 1.25 GM in Premix Bag 1 BAG IVPB SCH ×3 (03:51→19:53)
[2023-04-04] MEDS: Vancomycin 1 GM in Premix Bag 1 BAG IVPB SCH (04:31)
[2023-04-04] MEDS: HumaLOG 300 UNITS/3 ML VIAL SC PRN ×3 (06:17→18:01)
[2023-04-04] MEDS ORDERED: Insulin Glargine 30 UNITS/0.3 ML VIAL SC SCH (09:00)
[2023-04-04] MEDS: Thiamine 100 MG TAB PO SCH (09:15)
[2023-04-04] MEDS: Morphine ER 15 MG TAB PO SCH ×2 (09:16→19:52)
[2023-04-04] MEDS: Famotidine 20 MG TAB PO SCH ×2 (09:16→19:52)
[2023-04-04] MEDS: Polyethylene Glycol 3350 17 GM Packet PO SCH (09:17)
[2023-04-04] MEDS: Heparin 5,000 UNITS/ML VIAL SC SCH ×2 (09:19→19:53)
[2023-04-04] MEDS: Insulin Glargine 30 UNITS/0.3 ML VIAL SC SCH (19:53)
[2023-04-05 03:07] LABS: Vancomycin, Trough 12.7 ug/mL
[2023-04-05] MEDS: Cefepime 2 GM in Sodium Chloride 0.9% 100 ML IVPB SCH ×2 (03:36→14:56)
[2023-04-05] MEDS: VANCOMYCIN 1.25 GM/250 ML BAG 1.25 GM in Premix Bag 1 BAG IVPB SCH ×3 (05:13→20:48)
[2023-04-05] MEDS: HumaLOG 300 UNITS/3 ML VIAL SC PRN ×2 (05:57→12:31)
[2023-04-05] MEDS: Heparin 5,000 UNITS/ML VIAL SC SCH (08:24)
[2023-04-05] MEDS: Morphine ER 15 MG TAB PO SCH ×2 (08:25→20:49)
[2023-04-05] MEDS: Famotidine 20 MG TAB PO SCH ×2 (08:25→20:49)
[2023-04-05] MEDS: Polyethylene Glycol 3350 17 GM Packet PO SCH (08:27)
[2023-04-05] MEDS: Thiamine 100 MG TAB PO SCH (08:28)
[2023-04-05 08:57] LABS: Anion Gap 12 mmol/L (10-20); BUN (Urea Nitrogen) 15 mg/dL (8.9-20.6); Calc. Creatinine Clearance 130 mL/min (70-130); Calcium 8.8 mg/dL (7.8-10.44); Carbon Dioxide 27 mmol/L (22-29); Chloride 103 mmol/L (98-107); Estimated GFR 114; Glucose 122 mg/dL (70-105); Sodium 138 mmol/L (136-145)
[2023-04-05] MEDS ORDERED: Insulin Glargine 30 UNITS/0.3 ML VIAL SC SCH (09:00)
[2023-04-05] MEDS: Insulin Glargine 30 UNITS/0.3 ML VIAL SC SCH (20:48)
[2023-04-06] MEDS: Cefepime 2 GM in Sodium Chloride 0.9% 100 ML IVPB SCH ×2 (02:58→14:51)
[2023-04-06 05:03] LABS: Vancomycin, Trough 13.7 ug/mL
[2023-04-06] MEDS: VANCOMYCIN 1.25 GM/250 ML BAG 1.25 GM in Premix Bag 1 BAG IVPB SCH (05:14)
[2023-04-06] MEDS: Vancomycin 1.5 GRAM/300 ML BAG 1.5 GM in Premix Bag 1 BAG IVPB SCH ×3 (05:29→22:03)
[2023-04-06] MEDS: HumaLOG 300 UNITS/3 ML VIAL SC PRN ×4 (05:35→22:04)
[2023-04-06] MEDS: Insulin Glargine 30 UNITS/0.3 ML VIAL SC SCH ×2 (08:43→19:54)
[2023-04-06] MEDS: Morphine ER 15 MG TAB PO SCH ×2 (08:44→19:54)
[2023-04-06] MEDS: Famotidine 20 MG TAB PO SCH ×2 (08:44→19:53)
[2023-04-06] MEDS: Thiamine 100 MG TAB PO SCH (08:44)
[2023-04-06] MEDS: Polyethylene Glycol 3350 17 GM Packet PO SCH (08:44)
[2023-04-06] MEDS: HYDROcodone/Acetaminophen 5/325 mg Tablet PO PRN (15:27)
[2023-04-06] MEDS: Morphine 2 MG/ML VIAL SLOW IVP PRN (19:59)
[2023-04-07] MEDS: Cefepime 2 GM in Sodium Chloride 0.9% 100 ML IVPB SCH ×2 (02:12→16:11)
[2023-04-07] MEDS: Vancomycin 1.5 GRAM/300 ML BAG 1.5 GM in Premix Bag 1 BAG IVPB SCH ×3 (05:23→20:15)
[2023-04-07 05:45] LABS: Vancomycin, Trough 16.2 ug/mL
[2023-04-07] MEDS: Famotidine 20 MG TAB PO SCH ×2 (08:57→20:05)
[2023-04-07] MEDS: Thiamine 100 MG TAB PO SCH (08:57)
[2023-04-07] MEDS: Insulin Glargine 30 UNITS/0.3 ML VIAL SC SCH ×2 (08:58→20:04)
[2023-04-07] MEDS: Polyethylene Glycol 3350 17 GM Packet PO SCH (09:03)
[2023-04-07] MEDS: Morphine ER 15 MG TAB PO SCH ×2 (09:31→20:43)
[2023-04-07] MEDS: HumaLOG 300 UNITS/3 ML VIAL SC PRN ×2 (11:26→20:47)
[2023-04-07] MEDS: Morphine 2 MG/ML VIAL SLOW IVP PRN (20:05)
[2023-04-08] MEDS: Cefepime 2 GM in Sodium Chloride 0.9% 100 ML IVPB SCH ×2 (02:55→16:29)
[2023-04-08] MEDS: Vancomycin 1.5 GRAM/300 ML BAG 1.5 GM in Premix Bag 1 BAG IVPB SCH ×3 (05:10→20:30)
[2023-04-08] MEDS: HumaLOG 300 UNITS/3 ML VIAL SC PRN ×4 (05:49→21:38)
[2023-04-08] MEDS: Polyethylene Glycol 3350 17 GM Packet PO SCH (08:36)
[2023-04-08] MEDS: Morphine ER 15 MG TAB PO SCH ×2 (08:37→20:32)
[2023-04-08] MEDS: Insulin Glargine 30 UNITS/0.3 ML VIAL SC SCH ×2 (08:38→20:33)
[2023-04-08] MEDS: Famotidine 20 MG TAB PO SCH ×2 (08:38→20:33)
[2023-04-08] MEDS: Thiamine 100 MG TAB PO SCH (08:38)
[2023-04-08] MEDS: HYDROcodone/Acetaminophen 5/325 mg Tablet PO PRN (12:19)
[2023-04-08] MEDS: Morphine 2 MG/ML VIAL SLOW IVP PRN (20:32)
[2023-04-09] MEDS: Morphine 2 MG/ML VIAL SLOW IVP PRN ×2 (02:18→12:06)
[2023-04-09] MEDS: Cefepime 2 GM in Sodium Chloride 0.9% 100 ML IVPB SCH ×2 (02:19→14:44)
[2023-04-09] MEDS: Vancomycin 1.5 GRAM/300 ML BAG 1.5 GM in Premix Bag 1 BAG IVPB SCH (05:07)
[2023-04-09 05:55] LABS: Hematocrit 37.6 % (42.0-52.0); Hemoglobin 13.4 g/dL (14.0-18.0); Mean Corpuscular HGB CONC 35.6 g/dL (32.0-36.0); Mean Corpuscular Hemoglobin 32.1 pg (27.0-31.0); Mean Corpuscular Volume 90.2 fl (78.0-98.0); Mean Platelet Volume 9.2 fL (7.4-10.4); Platelet Count 302 10x3/uL (130-400); RBC Distribution Width 12.4 % (11.5-14.5); Red Blood Cell (RBC) Count 4.17 mill/uL (4.70-6.10); White Blood Cell (WBC) Count 10.4 10x3/uL (4.8-10.8)
[2023-04-09 06:18] LABS: Vancomycin, Trough 3.4 ug/mL
[2023-04-09 06:22] LABS: Anion Gap 12 mmol/L (10-20); BUN (Urea Nitrogen) 16 mg/dL (8.9-20.6); Calc. Creatinine Clearance 109 mL/min (70-130); Calcium 9.5 mg/dL (7.8-10.44); Carbon Dioxide 29 mmol/L (22-29); Chloride 97 mmol/L (98-107); Estimated GFR 109; Glucose 339 mg/dL (70-105); Potassium 4.5 mmol/L (3.5-5.1); Sodium 133 mmol/L (136-145)
[2023-04-09] MEDS: Famotidine 20 MG TAB PO SCH ×2 (08:57→19:48)
[2023-04-09] MEDS: Insulin Glargine 30 UNITS/0.3 ML VIAL SC SCH ×2 (08:57→19:49)
[2023-04-09] MEDS: Thiamine 100 MG TAB PO SCH (08:57)
[2023-04-09] MEDS: Polyethylene Glycol 3350 17 GM Packet PO SCH (08:58)
[2023-04-09] MEDS: HYDROcodone/Acetaminophen 5/325 mg Tablet PO PRN (09:10)
[2023-04-09] MEDS: Morphine ER 15 MG TAB PO SCH ×2 (09:53→19:48)
[2023-04-09] MEDS ORDERED: Doxycycline 100 MG CAP PO SCH (12:00)
[2023-04-09] MEDS: HumaLOG 300 UNITS/3 ML VIAL SC PRN (12:09)
[2023-04-09] MEDS: metroNIDAZOLE 500 MG TAB PO SCH ×2 (14:45→19:48)
[2023-04-09] MEDS: Doxycycline 100 MG CAP PO SCH (19:48)
[2023-04-09] MEDS: Acetaminophen 325 MG TAB PO PRN ×2 (19:49→23:23)
[2023-04-09] MEDS ORDERED: Nicotine 14 MG PATCH TD PRN (21:15)
[2023-04-10] MEDS: Cefepime 2 GM in Sodium Chloride 0.9% 100 ML IVPB SCH (03:39)
[2023-04-10] MEDS: Famotidine 20 MG TAB PO SCH (09:54)
[2023-04-10] MEDS: metroNIDAZOLE 500 MG TAB PO SCH (09:54)
[2023-04-10] MEDS: Doxycycline 100 MG CAP PO SCH (09:54)
[2023-04-10] MEDS: Polyethylene Glycol 3350 17 GM Packet PO SCH (09:55)
[2023-04-10] MEDS: Thiamine 100 MG TAB PO SCH (09:55)
[2023-04-10] MEDS: Insulin Glargine 30 UNITS/0.3 ML VIAL SC SCH (09:56)
[2023-04-10] MEDS: Morphine ER 15 MG TAB PO SCH (09:58)
[2023-04-10 10:35] VITALS: BP 138/80; TEMP 98.2
[2023-04-10] MEDS ORDERED: Cefepime 2 GM in Sodium Chloride 0.9% 100 ML IVPB SCH (12:00)
== END 2023-04-10 12:44 | disposition home or self-care (01) | DRG 638 ==
LOC: ERS 13:22 → SURG A 17:32
PROVIDERS: ADMIT Internal Medicine; ATTEND Internal Medicine
DX: E11.69 Type 2 diabetes mellitus with other specified complication (principal); L97.419 Non-pressure chronic ulcer of right heel and midfoot with unspecified severity; M86.8X7 Other osteomyelitis, ankle and foot; Z59.00 Homelessness unspecified; E11.65 Type 2 diabetes mellitus with hyperglycemia; I10 Essential (primary) hypertension; F41.9 Anxiety disorder, unspecified; F32.A Depression, unspecified; F17.210 Nicotine dependence, cigarettes, uncomplicated; Z51.5 Encounter for palliative care; Z89.431 Acquired absence of right foot; Z79.899 Other long term (current) drug therapy; Z98.890 Other specified postprocedural states; Z79.4 Long term (current) use of insulin; Z91.148 Patient's other noncompliance with medication regimen for other reason; E11.42 Type 2 diabetes mellitus with diabetic polyneuropathy; F12.90 Cannabis use, unspecified, uncomplicated; F15.90 Other stimulant use, unspecified, uncomplicated; E11.621 Type 2 diabetes mellitus with foot ulcer; L97.529 Non-pressure chronic ulcer of other part of left foot with unspecified severity
CPT/HCPCS: 36415; 36416; 80048; 80053; 80202; 80306; 83036; 83605; 85025; 85027; 86140; 87040; 87070; 87205; 96365; 96366; 96367; 96375; 96376; 97139; J0692; J1644; J1650; J1815; J2270; J2272; J2405; J3010; J3370; J3370-JW; J3490; J7050

== ENCOUNTER 2023-05-03 20:53 | Emergency (ER) | payer OTHER ==
[2023-05-03] MEDS ORDERED: Vancomycin 1 GM/200 ML (FROZEN) BAG ONE ×2 (21:38→21:39)
[2023-05-03] MEDS ORDERED: Piperacillin/Tazobactam 4.5 GM in Sodium Chloride 0.9% 100 ML IVPB SCH (21:45)
[2023-05-03 21:48] LABS: #Eosinphils 0.1 thou/uL (0.0-0.7); #Monocytes 0.9 thou/uL (0.11-0.59); #Neutrophils 10.3 thou/uL (1.40-6.50); %Basophils 0.2 % (0.0-1.0); %Lymphocytes 11.6 % (21.0-51.0); %Monocytes 6.7 % (0.0-10.0); %Neutrophils 80.3 % (42.0-75.0); Hematocrit 33.6 % (42.0-52.0); Hemoglobin 11.9 g/dL (14.0-18.0); Mean Corpuscular HGB CONC 35.4 g/dL (32.0-36.0); Mean Corpuscular Hemoglobin 31.4 pg (27.0-31.0); Mean Corpuscular Volume 88.7 fl (78.0-98.0); Mean Platelet Volume 9.1 fL (7.4-10.4); Platelet Count 375 10x3/uL (130-400); RBC Distribution Width 12.2 % (11.5-14.5); Red Blood Cell (RBC) Count 3.79 mill/uL (4.70-6.10); White Blood Cell (WBC) Count 12.8 10x3/uL (4.8-10.8)
[2023-05-03 22:14] LABS: ALT (SGPT) 13 U/L (8-55); AST (SGOT) 12 U/L (5-34); Albumin 3.9 g/dL (3.5-5.0); Alkaline Phosphatase 141 U/L (40-110); Anion Gap 14 mmol/L (10-20); BUN (Urea Nitrogen) 11 mg/dL (8.9-20.6); Bilirubin, Total 0.4 mg/dL (0.2-1.2); Calc. Creatinine Clearance 0 mL/min (70-130); Calcium 9.1 mg/dL (7.8-10.44); Carbon Dioxide 28 mmol/L (22-29); Chloride 95 mmol/L (98-107); Estimated GFR 110; Globulin 3.1 g/dL (2.4-3.5); Glucose 251 mg/dL (70-105); Potassium 3.2 mmol/L (3.5-5.1); Sodium 134 mmol/L (136-145)
== END 2023-05-03 23:55 ==
LOC: ERS 20:53
DX: L03.116 Cellulitis of left lower limb (principal); E11.9 Type 2 diabetes mellitus without complications; I10 Essential (primary) hypertension; F17.210 Nicotine dependence, cigarettes, uncomplicated
CPT/HCPCS: 80053; 83605; 85025; 96365; 96367; J2543; J3370-JW; J3490